=== PATIENT | male | born 1960 | race Caucasian/White ===

== ENCOUNTER 2016-07-23 13:50 | Emergency (ER) | payer SELFPAY ==
[2016-07-23] MEDS ORDERED: Aspirin Low Dose CHEW TAB* 81 MG PO ONE (14:03)
[2016-07-23 14:19] LABS: Hematocrit 47 % (42-52); Hemoglobin 16.3 g/dl (14.0-18.0); Mean Corpuscular HGB Conc 35 g/dl (31-36); Mean Corpuscular Hemoglobin 30 pg (27-31); Mean Corpuscular Volume 86 fL (80-94); Mean Platelet Volume 9 um3 (7.4-10.4); Red Blood Count 5.42 10^6/ul (4.0-5.4); Red Cell Distribution Width 13 % (10.5-15); White Blood Count 6.7 10^3/ul (3.5-10.8)
--- NOTE | 2016-07-23 14:28 | RAD ---
Indication: Chest pain. Single frontal view of the chest performed at 1410 hours was reviewed. No prior study is available for comparison. No mediastinal shift is noted. Heart is of normal size and configuration. Lung white appear clear. IMPRESSION: NO ACTIVE CARDIOPULMONARY DISEASE IS NOTED.
[2016-07-23 14:38] LABS: BUN/Creatinine Ratio 12.5 (8-20); Calcium 8.9 mg/dL (8.6-10.3); EGFR Non-African American 81.6 (>60); Globulin 2.6 g/dL (2-4); Potassium 3.7 mmol/L (3.5-5.0); Total Bilirubin 0.7 mg/dL (0.2-1.0); Total Protein 6.6 g/dL (6.4-8.9)
--- NOTE | 2016-07-23 15:35 | ED ---
William Vicente Anna, scribed for Rudy Barraza MD on 07/23/16 at 1409 . HPI Chest Pain - HPI Summary HPI Summary: Patient is a 55 y/o male BIBA to [facility] presenting with sudden onset of constant , stabbing, right-sided chest pain that began at 13:00. The pain radiates to the back. He was administered two Nitro and 324 mg Aspirin en route. This alleviated the pain, which is now described as a severity of 4/10. He experienced some nausea, SOB, and diaphoresis. Denies vomiting, diarrhea, constipation. - History of Current Complaint Chief Complaint: EDChestPainROMI Hx Obtained From: Patient, EMS Pain Intensity: 5 Pain Scale Used: 0-10 Numeric - Allergy/Home Medications Allergies/Adverse Reactions: Allergies Allergy/AdvReac Type Severity Reaction Status Date / Time No Known Allergies Allergy Verified 07/23/16 14:54 Home Medications: Home Medications NK [No Home Medications Reported] 07/23/16 [History Confirmed 07/23/16] PMH/Surg Hx/FS Hx/Imm Hx Previously Healthy: Yes Infectious Disease History: No Infectious Disease History: Denies: Traveled Outside the [place] in Last 30 Days - Family History Known Family History: Negative: Cardiac Disease, Hypertension, Diabetes - Social History Occupation: Employed Full-time Lives: With Family Alcohol Use: None Hx Substance Use: Yes Substance Use Type: Reports: Marijuana Hx Tobacco Use: No Review of Systems Positive: Skin Diaphoresis Positive: Chest Pain Positive: Shortness Of Breath Positive: Nausea. Negative: Vomiting, Diarrhea All Other Systems Reviewed And Are Negative: Yes Physical Exam - Summary Physical Exam Summary: VITAL SIGNS: Reviewed. GENERAL: Patient is a well developed and nourished male who is lying comfortable in the stretcher. Patient is not in any acute respiratory distress. HEAD AND FACE: No signs of trauma. No ecchymosis, hematomas or skull depressions. No sinus tenderness. EYES: PERRLA, EOMI x 2, No injected conjunctiva, no nystagmus. EARS: Hearing grossly intact. Ear canals and tympanic membranes are within normal limits. MOUTH: Oropharynx within normal limits. NECK: Supple, trachea is midline, no adenopathy, no JVD, no carotid bruit, no c- spine tenderness, neck with full ROM. CHEST: Symmetric, no tenderness at palpation LUNGS: Clear to auscultation bilaterally. No wheezing or crackles. CVS: Regular rate and rhythm, S1 and S2 present, no murmurs or gallops appreciated. ABDOMEN: Soft, non-tender. No signs of distention. No rebound no guarding, and no masses palpated. Bowel sounds are normal. EXTREMITIES: FROM in all major joints, no edema, no cyanosis or clubbing. NEURO: Alert and oriented x 3. No acute neurological deficits. Speech is normal and follows commands. SKIN: Dry and warm Triage Information Reviewed: Yes Vital Signs On Initial Exam: Initial Vitals Temp Pulse Resp BP Pulse Ox 98.8 F 77 16 138/75 98 07/23/16 13:55 07/23/16 13:55 07/23/16 13:55 07/23/16 13:55 07/23/16 13:55 Vital Signs Reviewed: Yes Diagnostics - Vital Signs Vital Signs Temp Pulse Resp BP Pulse Ox 07/23/16 13:59 75 13 98 07/23/16 13:56 138/75 07/23/16 13:55 98.8 F 77 16 138/75 98 - Laboratory Lab Results: Lab Results 07/23/16 07/23/16 07/23/16 Range/Units 14:00 14:00 14:00 WBC 6.7 (3.5-10.8) 10^3/ul RBC 5.42 H (4.0-5.4) 10^6/ul Hgb 16.3 (14.0-18.0) g/dl Hct 47 (42-52) % MCV 86 (80-94) fL MCH 30 (27-31) pg MCHC 35 (31-36) g/dl RDW 13 (10.5-15) % Plt Count 206 (150-450) 10^3/ul MPV 9 (7.4-10.4) um3 Neut % (Auto) 63.7 (38-83) % Lymph % (Auto) 21.5 L (25-47) % [place] % (Auto) 10.6 H (1-9) % Eos % (Auto) 3.5 (0-6) % Baso % (Auto) 0.7 (0-2) % Absolute Neuts (auto) 4.3 (1.5-7.7) 10^3/ul Absolute Lymphs (auto) 1.5 (1.0-4.8) 10^3/ul Absolute Monos (auto) 0.7 (0-0.8) 10^3/ul Absolute Eos (auto) 0.2 (0-0.6) 10^3/ul Absolute Basos (auto) 0 (0-0.2) 10^3/ul Absolute Nucleated RBC 0.01 10^3/ul Nucleated RBC % 0.2 Sodium 136 (133-145) mmol/L Potassium 3.7 (3.5-5.0) mmol/L Chloride 105 (101-111) mmol/L Carbon Dioxide 25 (22-32) mmol/L Anion Gap 6 (2-11) mmol/L BUN 12 (6-24) mg/dL Creatinine 0.96 (0.67-1.17) mg/dL Est GFR ( Amer) 105.0 (>60) Est GFR (Non-Af Amer) 81.6 (>60) BUN/Creatinine Ratio 12.5 (8-20) Glucose 90 (70-100) mg/dL Lactic Acid 1.6 (0.5-2.0) mmol/L Calcium 8.9 (8.6-10.3) mg/dL Total Bilirubin 0.70 (0.2-1.0) mg/dL AST 16 (13-39) U/L ALT 25 (7-52) U/L Alkaline Phosphatase 61 (34-104) U/L Total Creatine Kinase 113 (10-223) U/L CK-MB (CK-2) 4.8 (0.6-6.3) ng/mL Myoglobin 48.7 (17.4-105.7) ng/mL Troponin I 0.00 (<0.04) ng/mL B-Natriuretic Peptide ( - 100) pg/mL Total Protein 6.6 (6.4-8.9) g/dL Albumin 4.0 (3.2-5.2) g/dL Globulin 2.6 (2-4) g/dL Albumin/Globulin Ratio 1.5 (1-3) 07/23/16 Range/Units 14:00 WBC (3.5-10.8) 10^3/ul RBC (4.0-5.4) 10^6/ul Hgb (14.0-18.0) g/dl Hct (42-52) % MCV (80-94) fL MCH (27-31) pg MCHC (31-36) g/dl RDW (10.5-15) % Plt Count (150-450) 10^3/ul MPV (7.4-10.4) um3 Neut % (Auto) (38-83) % Lymph % (Auto) (25-47) % [place] % (Auto) (1-9) % Eos % (Auto) (0-6) % Baso % (Auto) (0-2) % Absolute Neuts (auto) (1.5-7.7) 10^3/ul Absolute Lymphs (auto) (1.0-4.8) 10^3/ul Absolute Monos (auto) (0-0.8) 10^3/ul Absolute Eos (auto) (0-0.6) 10^3/ul Absolute Basos (auto) (0-0.2) 10^3/ul Absolute Nucleated RBC 10^3/ul Nucleated RBC % Sodium (133-145) mmol/L Potassium (3.5-5.0) mmol/L Chloride (101-111) mmol/L Carbon Dioxide (22-32) mmol/L Anion Gap (2-11) mmol/L BUN (6-24) mg/dL Creatinine (0.67-1.17) mg/dL Est GFR ( Amer) (>60) Est GFR (Non-Af Amer) (>60) BUN/Creatinine Ratio (8-20) Glucose (70-100) mg/dL Lactic Acid (0.5-2.0) mmol/L Calcium (8.6-10.3) mg/dL Total Bilirubin (0.2-1.0) mg/dL AST (13-39) U/L ALT (7-52) U/L Alkaline Phosphatase (34-104) U/L Total Creatine Kinase (10-223) U/L CK-MB (CK-2) (0.6-6.3) ng/mL Myoglobin (17.4-105.7) ng/mL Troponin I (<0.04) ng/mL B-Natriuretic Peptide 5 ( - 100) pg/mL Total Protein (6.4-8.9) g/dL Albumin (3.2-5.2) g/dL Globulin (2-4) g/dL Albumin/Globulin Ratio (1-3) Result Diagrams: 07/23/16 14:00 07/23/16 14:00 Lab Statement: Any lab studies that have been ordered have been reviewed, and results considered in the medical decision making process. - Radiology CXR Xray Interpretation: No Acute Changes Radiology Interpretation Completed By: Radiologist - EKG 14:00 Cardiac Rate: NL EKG Rhythm: Sinus Rhythm - 73 bpm EKG Interpretation: No S/T elevation. Q waves in III. Chest Pain Course/Dx - Course Assessment/Plan: Patient is a 55 y/o male BIBA to [facility] presenting with sudden onset of constant, stabbing, right-sided chest pain that began at 13:00. The pain radiates to the back. He was administered two Nitro and 324 mg Aspirin en route. This alleviated the pain, which is now described as a severity of 4/10. He experienced some nausea, SOB, and diaphoresis. Denies vomiting, diarrhea, constipation. Blood work WNL, Troponin is 0.00. CXR no active cardiopulmonary disease. EKG NSR w/o INGE. Patient reports he is asymptomatic. He wants to be discharged home. I instructed that he is waiting for a second troponin. He declines the wait. He will sing AMA. I extensively discussed with the patient the benefits and risk of leaving AMA. I also discussed the alternatives to leaving AMA, however, the patient still insist to leave the hospital AMA.. The primary nurse and the charge nurse also strongly recommended that the patient should not leave AMA. Patient understands the risk of leaving AMA, which includes but is not restricted to . Patient is Alert and oriented times three and patient verbalizes understanding. Patient has full capacity and is cognitively intact. Patient signed the AMA form. Patient was also advised to return to ED if he changes his mind or if the symptoms worsen or other symptoms appear. Patient understands and agrees. - Chest Pain Differential Diagnosis/HQI/PQRI: ACS, Angina, CHF, Chest Wall, GI Disease, Lower Respiratory Infection - Diagnoses Provider Diagnoses: Chest pain, Left against medical advice Discharge - Discharge Plan Condition: Improved Disposition: AGAINST MEDICAL ADVICE Patient Education Materials: Chest Pain (ED) Referrals: [facility] [Outside] Additional Instructions: Follow up with primary care physician within 48 hours. Return to the emergency department for changing or worsening symptoms. The documentation as recorded by the William inman Anna accurately reflects the service I personally performed and the decisions made by , Rudy Barraza MD.
[2016-07-23 15:40] VITALS: BP 131/73
== END 2016-07-23 15:39 | disposition left against medical advice (07) ==
LOC: ED 13:50
DX: R07.9 Chest pain, unspecified (principal); R61 Generalized hyperhidrosis; R06.02 Shortness of breath; R11.0 Nausea; Z53.21 Procedure and treatment not carried out due to patient leaving prior to being seen by health care provider
CPT/HCPCS: 36415; 71010; 80053; 82550; 82553; 83605; 83874; 83880; 84484; 85025; 93005; 99283

== ENCOUNTER 2018-02-09 17:21 | Emergency (ER) | payer OTHER ==
[2018-02-09] MEDS ORDERED: Morphine VIAL* 10 MG/ML 1 ML VIAL IV ONE ×2 (18:28→21:14)
[2018-02-09] MEDS ORDERED: Ondansetron INJ* 2 MG/ML VIAL IV PRN (18:28)
[2018-02-09] MEDS ORDERED: NS 0.9% 1000 ML* 1,000 ML IV ONE (18:28)
[2018-02-09 18:44] LABS: ABS Basophils 0.1 10^3/ul (0-0.2); ABS Eosinophils 0.1 10^3/ul (0-0.6); ABS Lymphocytes 1.3 10^3/ul (1.0-4.8); ABS Monocytes 1.1 10^3/ul (0-0.8); ABS Neutrophils 9.4 10^3/ul (1.5-7.7); ABS Nucleated RBC 0.1 10^3/ul; Eosinophil % 0.6 % (0-6); Hematocrit 44 % (42-52); Hemoglobin 15.7 g/dl (14.0-18.0); Lymphocyte % 10.9 % (25-47); Mean Corpuscular HGB Conc 35 g/dl (31-36); Mean Corpuscular Hemoglobin 30 pg (27-31); Mean Corpuscular Volume 86 fL (80-94); Mean Platelet Volume 8.3 um3 (7.4-10.4); Nucleated Red Blood Cells % 0.9; Platelet Count 220 10^3/ul (150-450); Red Blood Count 5.18 10^6/ul (4.00-5.40); Red Cell Distribution Width 14 % (10.5-15); White Blood Count 11.9 10^3/ul (3.5-10.8)
[2018-02-09 19:31] LABS: EGFR Non-African American 68.5 (>60)
[2018-02-09] MEDS ORDERED: Iohexol 300* (CONTRAST) 10 ML SDV IV ONE (19:41)
[2018-02-09 20:42] LABS: Urine Appearance Clear; Urine Blood Negative (Negative); Urine Color Yellow; Urine Ketones Negative (Negative); Urine Protein Negative (Negative); Urine Urobilinogen Positive (Negative)
[2018-02-09] MEDS ORDERED: metroNIDAZOLE TAB* 250 MG PO ONE (20:43)
[2018-02-09] MEDS ORDERED: Levofloxacin TAB* 250 MG PO ONE (20:43)
--- NOTE | 2018-02-09 21:12 | ED ---
Abdominal Pain/Male - HPI Summary HPI Summary: Patient complains of left lower quadrant pain 4 days. Abdominal pains gums constant, progressive, sharp, new onset. Worse with nothing, better with nothing. No improvement with ibuprofen. Denies fever, cough, sore throat, CP, SOB, N/V/D, change in urine, penile pain or discharge, testicular pain. Medical history is none. Abdominal/pelvic surgical history is none. - History of Current Complaint Chief Complaint: EDAbdPain Stated Complaint: LT LOWER ABD PAIN Time Seen by Provider: 02/09/18 18:10 Hx Obtained From: Patient Onset/Duration: Gradual Onset Timing: Constant Severity Initially: Mild Severity Currently: Moderate Pain Intensity: 7 Pain Scale Used: 0-10 Numeric Location: Discrete At: LLQ Radiates: No Aggravating Factor(s): Nothing Alleviating Factor(s): Nothing Associated Signs And Symptoms: Positive: Negative - Allergies/Home Medications Allergies/Adverse Reactions: Allergies Allergy/AdvReac Type Severity Reaction Status Date / Time No Known Allergies Allergy Verified 07/23/16 14:54 PMH/Surg Hx/FS Hx/Imm Hx Endocrine/Hematology History: Denies: Hx Anticoagulant Therapy, Hx Diabetes History: Denies: Hx Renal Disease Infectious Disease History: No Infectious Disease History: Denies: Traveled Outside the [place] in Last 30 Days - Family History Known Family History: Negative: Cardiac Disease, Hypertension, Diabetes - Social History Alcohol Use: None Hx Substance Use: Yes Substance Use Type: Reports: Marijuana Hx Tobacco Use: No Smoking Status (MU): Never Smoked Tobacco Review of Systems Constitutional: Negative Eyes: Negative ENT: Negative Cardiovascular: Negative Respiratory: Negative Positive: Abdominal Pain Genitourinary: Negative Musculoskeletal: Negative Skin: Negative Neurological: Negative Psychological: Normal All Other Systems Reviewed And Are Negative: Yes Physical Exam - Summary Physical Exam Summary: Tenderness in left lower quadrant of abdomen. Triage Information Reviewed: Yes Vital Signs On Initial Exam: Initial Vitals Temp Pulse Resp BP Pulse Ox 98.6 F 78 18 139/94 98 02/09/18 17:24 02/09/18 17:24 02/09/18 17:24 02/09/18 17:24 02/09/18 17:24 Vital Signs Reviewed: Yes Appearance: Positive: Well-Appearing Skin: Positive: Warm Head/Face: Positive: Normal Head/Face Inspection Eyes: Positive: Normal Neck: Positive: Supple Respiratory/Lung Sounds: Positive: Clear to Auscultation Cardiovascular: Positive: Normal Abdomen Description: Positive: Other: Musculoskeletal: Positive: Normal Neurological: Positive: Normal Psychiatric: Positive: Normal AVPU Assessment: Alert - [place] Coma Scale Best Eye Response: 4 - Spontaneous Best Motor Response: 6 - Obeys Commands Best Verbal Response: 5 - Oriented Coma Scale Total: 15 Diagnostics - Vital Signs Vital Signs Temp Pulse Resp BP Pulse Ox 02/09/18 18:54 18 02/09/18 17:24 98.6 F 78 18 139/94 98 - Laboratory Lab Results: Lab Results 02/09/18 02/09/18 02/09/18 Range/Units 18:37 18:37 20:32 WBC 11.9 H (3.5-10.8) 10^3/ul RBC 5.18 (4.00-5.40) 10^6/ul Hgb 15.7 (14.0-18.0) g/dl Hct 44 (42-52) % MCV 86 (80-94) fL MCH 30 (27-31) pg MCHC 35 (31-36) g/dl RDW 14 (10.5-15) % Plt Count 220 (150-450) 10^3/ul MPV 8.3 (7.4-10.4) um3 Neut % (Auto) 78.8 (38-83) % Lymph % (Auto) 10.9 L (25-47) % [place] % (Auto) 8.9 H (0-7) % Eos % (Auto) 0.6 (0-6) % Baso % (Auto) 0.8 (0-2) % Absolute Neuts (auto) 9.4 H (1.5-7.7) 10^3/ul Absolute Lymphs (auto) 1.3 (1.0-4.8) 10^3/ul Absolute Monos (auto) 1.1 H (0-0.8) 10^3/ul Absolute Eos (auto) 0.1 (0-0.6) 10^3/ul Absolute Basos (auto) 0.1 (0-0.2) 10^3/ul Absolute Nucleated RBC 0.1 10^3/ul Nucleated RBC % 0.9 Sodium 137 (135-145) mmol/L Potassium 3.8 (3.5-5.0) mmol/L Chloride 107 (101-111) mmol/L Carbon Dioxide 24 (22-32) mmol/L Anion Gap 6 (2-11) mmol/L BUN 12 (6-24) mg/dL Creatinine 1.11 (0.67-1.17) mg/dL Est GFR ( Amer) 82.9 (>60) Est GFR (Non-Af Amer) 68.5 (>60) BUN/Creatinine Ratio 10.8 (8-20) Glucose 109 H (70-100) mg/dL Calcium 9.3 (8.6-10.3) mg/dL Total Bilirubin 1.30 H (0.2-1.0) mg/dL AST 34 (13-39) U/L ALT 42 (7-52) U/L Alkaline Phosphatase 91 (34-104) U/L C-Reactive Protein 163.53 H (<8.01) mg/L Total Protein 7.0 (6.4-8.9) g/dL Albumin 4.0 (3.2-5.2) g/dL Globulin 3.0 (2-4) g/dL Albumin/Globulin Ratio 1.3 (1-3) Lipase 17 (11.0-82.0) U/L Urine Color Yellow Urine Appearance Clear Urine pH 5.0 (5-9) Ur Specific [place] 1.050 H (1.010-1.030) Urine Protein Negative (Negative) Urine Ketones Negative (Negative) Urine Blood Negative (Negative) Urine Nitrate Negative (Negative) Urine Bilirubin Negative (Negative) Urine Urobilinogen Positive A (Negative) Ur Leukocyte Esterase Negative (Negative) Urine Glucose Negative (Negative) Result Diagrams: 02/09/18 18:37 02/09/18 18:37 Lab Statement: Any lab studies that have been ordered have been reviewed, and results considered in the medical decision making process. Abdominal Pain Fem Course/Dx - Course Course Of Treatment: Patient complains of left lower quadrant pain 4 days. Abdominal pains gums constant, progressive, sharp, new onset. Worse with nothing, better with nothing. No improvement with ibuprofen. Denies fever, cough, sore throat, CP, SOB, N/V/D, change in urine, penile pain or discharge, testicular pain. Medical history is none. Abdominal/pelvic surgical history is none. Physical exam:Tenderness in left lower quadrant of abdomen. Vital signs within normal limits. CT abdomen/pelvis positive for diverticulitis, no abscess no prior. Rx for Levaquin and Flagyl. - Diagnoses Provider Diagnoses: Diverticulitis Discharge - Sign-Out/Discharge Documenting (check all that apply): Patient Departure - Discharge Plan Condition: Stable Disposition: HOME Prescriptions: HYDROcodone/ACETAMIN 5-325 MG* [[place] 5-325 TAB*] 1 tab PO Q6H PRN 2 Days #6 tab MDD 3 tabs PRN Reason: Pain Levofloxacin TAB* [Levaquin TAB*] 750 mg PO DAILY 9 Days #9 tab metroNIDAZOLE [Flagyl 500 MG TAB] 500 mg PO TID 10 Days #30 tab Patient Education Materials: Diverticulitis (ED) Forms: *Work Release Referrals: Fredy Atkinson MD [Primary Care Provider] - Additional Instructions: Return to the ED for any new or worsening symptoms - Billing Disposition and Condition Condition: STABLE Disposition: Home
[2018-02-09 21:16] VITALS: BP 150/92
--- NOTE | 2018-02-10 07:48 | RAD ---
INDICATION: Left lower quadrant pain COMPARISON: None TECHNIQUE: Axial source images were obtained from the hemidiaphragms to the symphysis pubis following administration of intravenous contrast only as requested by the emergency Department. Lack of oral contraceptives evaluation of the bowel. Coronal and sagittal reconstructed images were acquired. Lung bases: The lung bases are clear. Liver: There are findings of hepatic steatosis. There are no masses. There is no ductal dilatation. Gallbladder: There are no calcified gallstones. There is no evidence of wall thickening or pericholecystic fluid. Spleen: The spleen is normal in size. There are no masses. Pancreas: There is no focal pancreatic mass or ductal dilatation. Adrenal glands: There is no evidence of adrenal mass. Kidneys: The kidneys are normal in size and position. There are prompt nephrograms and there is prompt excretion bilaterally. There are no renal parenchymal masses. There is no evidence of nephrolithiasis. Adenopathy: There is no evidence of adenopathy by size criteria. Fluid collections: Mesenteric stranding left lower quadrant. Vessels:There are no significant atherosclerotic changes involving the aorta. There is no focal aneurysm. The iliac vessels are normal in caliber. The IVC appears normal. GI tract: There are mildly prominent loops of air-filled small bowel left upper quadrant representing jejunal loops. The findings are most consistent with a localized ileus. There is inflammatory change of the sigmoid colon with mural thickening. There is perienteric stranding. There are several, tiny, punctate foci of air which may represent a contained perforation. The appendix appears normal Pelvic organs: The prostate and seminal vesicles appear normal Bladder: There are no bladder masses. Abdominal and pelvic soft tissues: The extraperitoneal abdominal and pelvic soft tissues appear normal.. Osseous structures: There are no acute osseous findings. Other: None IMPRESSION: DIVERTICULITIS SIGMOID COLON WITH SEVERAL TINY PUNCTATE FOCI OF AIR SUGGESTIVE OF CONTAINED PERFORATION. LOCALIZED ILEUS. HEPATIC STEATOSIS.
== END 2018-02-09 21:55 | disposition home or self-care (01) ==
LOC: ED 17:21
DX: K57.32 Diverticulitis of large intestine without perforation or abscess without bleeding (principal); K56.7 Ileus, unspecified; K76.0 Fatty (change of) liver, not elsewhere classified
CPT/HCPCS: 36415; 74177; 80053; 81003; 83690; 85025; 86140; 96361; 96374; 96376; 99284; A9270-GY; J2270; Q9967

== ENCOUNTER 2018-02-12 06:40 | Emergency (ER) | payer OTHER ==
[2018-02-12] MEDS ORDERED: Morphine INJ* 2 MG/ML 1 ML SYRINGE (TWO MG - NEW SYRINGE VERSION) IV ONE (07:24)
[2018-02-12] MEDS ORDERED: Ondansetron INJ* 2 MG/ML VIAL IV ONE (07:24)
--- NOTE | 2018-02-12 07:32 | ED ---
HPI Chest Pain - HPI Summary HPI Summary: Patient presents with right-sided chest pain that occurred about an hour prior to arrival. He reports he woke up this morning hot and sweaty and with an urge to move his bowels. He went to the bathroom and when he did such, he had some relief. When he had a second urge to move his bowels, he went to the bathroom again. He admits he was straining a bit this time and developed some right- sided chest pain that were sharp. He admits this has dissipated since he's been here in the emergency department. He denies jaw pain, arm pain, shortness of breath, chest heaviness, fatigue, dizziness. He comments that prior to this episode he had nasal congestion and "vomited some phlegm" - possibly some postnasal drip. Nasal passages are clear and he no longer has nausea. He also admits he's been suffering w/ LLQ ab pain since earlier this week when he was dx 'd w/ diverticulitis. He's been taking levaquin and flagyl since Thursday - no meds yet today. He was taking norco for pain but reports he's completed these and continues to have pain. He did a 1 day clears diet and has progressed to solids - ate goulosh yesterday. Reports he's had increased flatulence since. Ab pain 01/12 currently. Denies h/o cardiac issues, HTN, hyperlipidemia, smoking, ETOH abuse. He admits to an episode of CP in the past and was seen here for w/u but admits he didn't stay for complete testing as he didn't feel like waiting any longer.He denies CP since until this morning. H/o GERD - has been worse since diverticulitis. CP has resolved at this point in time. - History of Current Complaint Chief Complaint: EDChestPainROMI Time Seen by Provider: 02/12/18 06:56 Hx Obtained From: Patient Pain Intensity: 7 - Allergy/Home Medications Allergies/Adverse Reactions: Allergies Allergy/AdvReac Type Severity Reaction Status Date / Time No Known Allergies Allergy Verified 02/12/18 07:29 PMH/Surg Hx/FS Hx/Imm Hx Previously Healthy: Yes Endocrine/Hematology History: Denies: Hx Anticoagulant Therapy, Hx Diabetes, Hx Thyroid Disease, Hx Anemia , Autoimmune Disease Cardiovascular History: Denies: Hx Aneurysm, Hx Congestive Heart Failure, Hx Hypercholesterolemia, Hx Hypertension, Hx Myocardial Infarction, Hx Valvular Heart Disease Respiratory History: Denies: Hx Asthma, Hx Chronic Obstructive Pulmonary Disease (COPD), Hx Pulmonary Embolism History: Denies: Hx Renal Disease - Immunization History Date of Tetanus Vaccine: utd Date of Influenza Vaccine: none Infectious Disease History: No Infectious Disease History: Denies: Traveled Outside the [place] in Last 30 Days - Family History Known Family History: Negative: Cardiac Disease, Hypertension, Diabetes - Social History Occupation: Employed Full-time - [employer] Lives: Dormitory/Roommates Alcohol Use: None Hx Substance Use: Yes Substance Use Type: Reports: Marijuana Hx Tobacco Use: No Smoking Status (MU): Never Smoked Tobacco Review of Systems Positive: Chills - 1 x this morning w/ CP. Negative: Fatigue ENT: Other - nasal congestion earlier today Positive: Chest Pain. Negative: Palpitations Respiratory: Negative Positive: Abdominal Pain Genitourinary: Negative Musculoskeletal: Negative Skin: Negative Neurological: Negative Positive: Anxious All Other Systems Reviewed And Are Negative: Yes Physical Exam Triage Information Reviewed: Yes Vital Signs On Initial Exam: Initial Vitals Temp Pulse Resp BP Pulse Ox 97.6 F 59 20 153/96 100 02/12/18 06:43 02/12/18 06:43 02/12/18 06:43 02/12/18 06:43 02/12/18 06:43 Vital Signs Reviewed: Yes Appearance: Positive: Pain Distress - generalized pallor, but is alert and somewhat comfortable sitting up on stretcher, Obese Skin: Positive: Warm, Skin Color Reflects Adequate Perfusion, Dry Head/Face: Positive: Normal Head/Face Inspection Eyes: Positive: Normal, EOMI, Conjunctiva Clear - anicteric ENT: Positive: Hearing grossly normal, Pharynx normal - mucosa somewhat dry. Negative: Nasal congestion, Nasal drainage Neck: Positive: Supple Respiratory/Lung Sounds: Positive: Clear to Auscultation, Breath Sounds Present Cardiovascular: Positive: Normal, RRR, Pulses are Symmetrical in both Upper and Lower Extremities, S1, S2. Negative: Murmur, Rub, Leg Edema Left, Leg Edema Right Abdomen Description: Positive: Other: - LLQ TTP Bowel Sounds: Positive: Present Musculoskeletal: Positive: Normal Neurological: Positive: Normal, Sensory/Motor Intact, Alert, Oriented to Person Place, Time, CN Intact II-III Psychiatric: Positive: Anxious Diagnostics - Vital Signs Vital Signs Temp Pulse Resp BP Pulse Ox 02/12/18 06:47 57 100 02/12/18 06:43 97.6 F 59 20 153/96 100 - Laboratory Result Diagrams: 02/12/18 07:30 02/12/18 07:30 Lab Statement: Any lab studies that have been ordered have been reviewed, and results considered in the medical decision making process. Re-Evaluation - Re-Evaluation First Eval Change: Unchanged - no pain relief w/ morphine 4mg - will try toradol as he's taken NSAID's in the past w/o difficulty Chest Pain Course/Dx - Course Course Of Treatment: CP resolved upon arrival and has stayed away since here. Troponins and ECG are w/o concern for STEMI/NSTEMI. ECG NSR, 66bpm, no QT prolongation. In regards to ab pain/diverticulitis, WBC improved since 02/09 and no other s/sx of worsening infection. Explained his pain may continue despite his infection improving d/t the inflammation in the area. Education about the importance of clear liquid diet to ease pain until inflammation may reduce. Will switch from norco to NSAID's and close f/u w/ PCP. - Diagnoses Provider Diagnoses: Right-sided chest pain, Diverticulitis Discharge - Sign-Out/Discharge Documenting (check all that apply): Patient Departure - Discharge Plan Condition: Stable Disposition: HOME Prescriptions: Naproxen [Naproxen 500 mg tab] 500 mg PO BID PRN #20 tablet.dr BECKMAN Reason: Pain Patient Education Materials: Chest Pain (ED), Diverticulitis (ED) Forms: *Work Release Referrals: Fredy Atkinson MD [Primary Care Provider] - Additional Instructions: The definitive cause of your chest pain was not identified today however life- threatening condition such as heart attack, enlarged heart, fluid around her heart, infection, collapsed lung, etc. have been ruled out. There is a possibility that this was from straining while using the bathroom earlier today. It is important that you refrain from straining when moving her bowels - try to relax and just let them naturally flow. This may be best achieved with drinking lots of fluid and given your current state of diverticulitis, avoiding solid foods for the next couple of days. It is important to stay hydrated which you can do with a clear diet that includes water, Gatorade, broth , juice, etc. You may advance your diet to low residual foods such as saltines , cooked noodles, etc. as your pain and gassiness subsides. Continue antibiotics as directed. You were given a different pain medication today called naproxen which will help with pain and inflammation in your intestines, it is important that you take this with milk or yogurt to reduce risk of gastric irritation, ulcer, bleeding. Follow up with your PCP to monitor this condition - call today to schedule a follow-up appointment. If your symptoms worsen, return to the emergency department. - Billing Disposition and Condition Condition: STABLE Disposition: Home
[2018-02-12 07:46] LABS: ABS Basophils 0.1 10^3/ul (0-0.2); ABS Eosinophils 0.1 10^3/ul (0-0.6); ABS Lymphocytes 1.1 10^3/ul (1.0-4.8); ABS Monocytes 0.5 10^3/ul (0-0.8); ABS Neutrophils 4.7 10^3/ul (1.5-7.7); ABS Nucleated RBC 0 10^3/ul; Eosinophil % 2.3 % (0-6); Hematocrit 45 % (42-52); Hemoglobin 15.8 g/dl (14.0-18.0); Lymphocyte % 16.4 % (25-47); Mean Corpuscular HGB Conc 35 g/dl (31-36); Mean Corpuscular Hemoglobin 30 pg (27-31); Mean Corpuscular Volume 86 fL (80-94); Mean Platelet Volume 8.3 um3 (7.4-10.4); Nucleated Red Blood Cells % 0.1; Platelet Count 241 10^3/ul (150-450); Red Blood Count 5.25 10^6/ul (4.00-5.40); Red Cell Distribution Width 14 % (10.5-15); White Blood Count 6.5 10^3/ul (3.5-10.8)
[2018-02-12 07:54] LABS: INR 1.16 (0.77-1.02)
[2018-02-12 08:10] LABS: EGFR Non-African American 78.2 (>60)
--- NOTE | 2018-02-12 08:19 | RAD ---
INDICATION: Chest pain COMPARISON: July 13, 2016 TECHNIQUE: An AP portable view obtained at 0750 hours is submitted. FINDINGS: Bones/Soft Tissues: There are no acute bony findings. Cardiomediastinal: The cardiomediastinal silhouette is normal. Lungs: There are no infiltrates. Pleura: There are no pleural effusions. Other: None IMPRESSION: NO ACTIVE DISEASE
[2018-02-12] MEDS ORDERED: Ketorolac INJ* 30 MG/ML 1 ML VIAL IV PUSH ONE (08:23)
[2018-02-12] MEDS ORDERED: metroNIDAZOLE TAB* 250 MG PO ONE (08:59)
[2018-02-12] MEDS ORDERED: Levofloxacin TAB* 250 MG PO ONE (08:59)
[2018-02-12 11:27] VITALS: BP 135/96
== END 2018-02-12 11:25 | disposition home or self-care (01) ==
LOC: ED 06:40
DX: R07.9 Chest pain, unspecified (principal); K57.92 Diverticulitis of intestine, part unspecified, without perforation or abscess without bleeding; K21.9 Gastro-esophageal reflux disease without esophagitis
CPT/HCPCS: 36415; 71045; 80053; 83605; 83735; 84443; 84484; 85025; 85610; 85730; 93005; 96374; 96375; 99283; A9270-GY; J1885; J2270; J2405